=== PATIENT | female | born 1965 | race Caucasian/White ===

== ENCOUNTER 2022-12-09 20:31 | Emergency (ER) | payer BC ==
[2022-12-09] MEDS ORDERED: KETOROLAC 15 MG/ML 1 ML VIAL IM STA (20:57)
[2022-12-09] MEDS ORDERED: MORPHINE SULFATE 4 MG/ML SYRINGE IM STA (20:57)
--- NOTE | 2022-12-09 21:04 | ED ---
Upper Extremity HPI - General Chief Complaint: Extremity Injury, Upper Stated Complaint: Left shoulder injury Time Seen by Provider: 12/09/22 20:52 Source: patient, RN notes reviewed Mode of arrival: ambulatory Limitations: no limitations - History of Present Illness Initial Comments: This is a 57-year-old female who presents to the emergency department for left shoulder pain. States that she and her family are camping and her grandchildren were sleeping with her in a tent last night. She went to move one of them and developed severe sudden pain in the left shoulder. Reports a history of labral tears and states that this feels similar. She is taking ibuprofen and Tylenol with no relief in symptoms. She is having difficulty moving the arm due to the pain. States that her arm feels like it is starting to go numb. Denies any fevers, chills, sore throat, cough, dyspnea, chest pain, palpitations, abdominal pain, nausea, vomiting, diarrhea, back pain, or headaches. MD Complaint: Injury to:: left, shoulder Onset/Timin -: days(s) - Related Data Previous Rx's Medication Instructions Recorded Baclofen 10 mg PO TID PRN #20 tab 12/09/22 HYDROcodone/APAP 7.5-325MG [[place] 1 tab PO Q6HR PRN 3 Days #12 tab 12/09/22 7.5-325] Ketorolac [Toradol] 10 mg PO Q6HR PRN #12 tab 12/09/22 Allergies Allergy/AdvReac Type Severity Reaction Status Date / Time No Known Allergies Allergy Verified 12/09/22 20:43 Review of Systems ROS Statement: Those systems with pertinent positive or pertinent negative responses have been documented in the HPI. ROS Other: All systems not noted in ROS Statement are negative. Past Medical History Past Medical History: Hyperlipidemia History of Any Multi-Drug Resistant Organisms: None Reported Past Surgical History: Orthopedic Surgery Additional Past Surgical History / Comment(s): laparoscopy Past Psychological History: No Psychological Hx Reported Smoking Status: Never smoker Past Alcohol Use History: None Reported Past Drug Use History: None Reported General Exam Limitations: no limitations General appearance: alert, in no apparent distress Head exam: Present: atraumatic, normocephalic, normal inspection Respiratory exam: Present: normal lung sounds bilaterally. Absent: respiratory distress, wheezes, rales, rhonchi, stridor Cardiovascular Exam: Present: regular rate, normal rhythm, normal heart sounds. Absent: systolic murmur, diastolic murmur, rubs, gallop, clicks Extremities exam: Present: other (Tenderness to palpation over the posterior aspect of the left humeral head. No obvious deformities. Limited range of motion secondary to pain. 2+ radial pulses. Capillary refill <1 second.) Neurological exam: Present: alert, oriented X3, CN II-XII intact Psychiatric exam: Present: normal affect, normal mood Skin exam: Present: warm, dry, intact, normal color. Absent: rash Course Vital Signs 12/09/22 12/09/22 20:43 23:09 Temperature 98.1 F 98.0 F Pulse Rate 66 70 Respiratory 18 16 Rate Blood Pressure 120/81 130/86 O2 Sat by Pulse 98 97 Oximetry Medical Decision Making - Medical Decision Making This is a 57-year-old female who presents to the emergency department for left shoulder pain. Was pt. sent in by a medical professional or institution? @ -No Did you speak to anyone other than the patient for history? @ -No Did you review nursing and triage notes? @ -Yes, and I agree, it is accurate with regards to the patient's symptoms. Were old charts reviewed? @ -No Differential Diagnosis? @ -Differential Shoulder Injury: Fracture, dislocation, contusion, rotator cuff injury, AC joint separation, sprain, this is not meant to be an all-inclusive list. EKG interpreted by me (3pts min.)? @ -Not obtained X-rays interpreted by me (1pt min.)? @ -XR of the left shoulder obtained. My interpretation identifies no acute fractures or dislocations. CT interpreted by me (1pt min.)? @ -Not obtained U/S interpreted by me (1pt. min.)? @ -Not obtained What testing was considered but not performed? (CT, X-rays, U/S, labs)? Why? @ -None What meds were considered but not given? Why? @ -None Did you discuss the management of the patient with other professionals? @ -No Did you reconcile home meds? @ -No Was smoking cessation discussed for >3mins.? @ -No Was critical care preformed (if so, how long)? @ -No Were there social determinants of health that impacted care today? How? (Homelessness, low income, unemployed, alcoholism, drug addiction, transportation, low edu. Level, literacy, decrease access to med. care, assisted, rehab)? @ -No Was there de-escalation of care discussed even if they declined? (Discuss DNR or withdrawal of care, Hospice)? @ -No What co-morbidities impacted this encounter? (DM, HTN, Smoking, COPD, CAD, Cancer, CVA, Hep., AIDS, mental health diagnosis, sleep apnea, morbid obesity)? @ -None Was patient admitted / discharged? @ -Discharged. X-ray of the left shoulder obtained revealing no acute findings. She was initially given Toradol and morphine, however she had no relief in symptoms. She was subsequently given Dilaudid and Norflex, and afterwards started to have some relief in the pain. Pain was exacerbated whenever the arm was moved. Discussed that while her imaging does not reveal any irregularities, that does not rule out the possibility of problems with tendons, ligaments, or her rotator cuff. She was given an arm sling due to the pain being exacerbated by movement, however I advised that this can lead to a frozen shoulder if it is used for a prolonged period of time. Patient expresses understanding. Given the severity of her symptoms, I was willing to prescribe a 3 day course of [place], along with baclofen and Toradol. Patient is instructed to take the Toradol with Tylenol if needed and avoid any other [id number] anti-inflammatories such as ibuprofen with the Toradol. Also advised both the [place] and baclofen and may make her drowsy and she should avoid driving or operating machinery when taking them. Discussed having her become established with an orthopedic provider in her home town, in the event she needs an MRI of the shoulder for further evaluation. She will follow up with her primary care provider in the meantime. Undiagnosed new problem with uncertain prognosis? @ -None Drug Therapy requiring intensive monitoring for toxicity (Heparin, Nitro, Insulin, Cardizem)? @ -None Were any procedures done? @ -None Diagnosis/symptom? @ -Left shoulder pain/injury Acute, or Chronic, or Acute on Chronic? @ -Acute Uncomplicated (without systemic symptoms) or Complicated (systemic symptoms)? @ -Uncomplicated Side effects of treatment? @ -None Exacerbation, Progression, or Severe Exacerbation] @ -Not applicable Poses a threat to life or bodily function? @ -This is limiting her mobility of the left arm for the mean time. Return precautions reviewed in depth, the patient is instructed to return to the emergency department with any new, worsening, or concerning symptoms. Patient verbalized understanding. This case was discussed in detail with the attending ED physician, Dr. Guzman. Presentation, findings, and treatment plan discussed in detail as well. - Radiology Data Radiology results: report reviewed, image reviewed Disposition Clinical Impression: Injury of left shoulder Disposition: HOME SELF-CARE Instructions (If sedation given, give patient instructions): Shoulder Sprain (ED) Additional Instructions: Return to the emergency department with any new, worsening, or concerning symptoms. Alternate with the Toradol and Tylenol for pain relief. If you choose to take Toradol, do not take it with other anti-inflammatories such as ibuprofen, take one or the other. Take the [place] sparingly when your pain is the most severe. Be aware that both the baclofen and [place] may make you drowsy and you should avoid driving or operating machinery when taking them. Apply ice for 15-20 minutes every 2-3 hours. Consider becoming established with an orthopedic provider in the event you need an MRI of the shoulder to evaluate for other possible injuries. Follow up with your primary care provider in 1-2 days. Prescriptions: Baclofen 10 mg PO TID PRN #20 tab PRN Reason: Pain HYDROcodone/APAP 7.5-325MG [[place] 7.5-325] 1 tab PO Q6HR PRN 3 Days #12 tab PRN Reason: Pain Ketorolac [Toradol] 10 mg PO Q6HR PRN #12 tab PRN Reason: Pain Is patient prescribed a controlled substance at d/c from ED?: Yes When asked, does pt state using other controlled substances?: No If prescribed controlled substance>3 days was MAPS reviewed?: Prescribed <3 Days Referrals: Nonstaff,Physician [REFERRING] - 1-2 days
--- NOTE | 2022-12-09 21:44 | XR ---
EXAMINATION TYPE: XR shoulder complete LT DATE OF EXAM: 12/09/2022 9:24 PM INDICATION: Patient age:Female; 57 years old; Reason for study: Pain; COMPARISON: None TECHNIQUE: The left shoulder was examined in AP, internally rotated and scapular Y projections. FINDINGS: No evidence of acute osseous pathology, joint dislocation, or soft tissue swelling. The remaining por tions of the visualized chest are unremarkable. IMPRESSION: No acute osseous pathology.
[2022-12-09] MEDS ORDERED: ORPHENADRINE 30 MG/ML 2 ML VIAL IVP STA (22:06)
[2022-12-09] MEDS ORDERED: HYDROmorphone 0.5 MG/0.5 ML SYRINGE IVP STA (22:06)
[2022-12-09] MEDS ORDERED: DEXAMETHASONE SOD PHOSPHATE 10 MG/ML 1 ML VIAL IVP STA (23:00)
[2022-12-09] MEDS ORDERED: ACET/COD 300 MG/30 MG STARTER PACK 6 TAB BTL PO STA (23:00)
[2022-12-09] MEDS ORDERED: IBUPROFEN 600 MG STARTER PACK 4 TAB BTL PO STA (23:00)
[2022-12-09 23:10] VITALS: BP 130/86; PULSE 70; RESP 16; TEMP 98
== END 2022-12-09 23:24 | disposition home or self-care (01) ==
LOC: EC 20:31
DX: S40.912A Unspecified superficial injury of left shoulder, initial encounter (principal); X50.9XXA Other and unspecified overexertion or strenuous movements or postures, initial encounter
CPT/HCPCS: 73030; 99284; 96374; 96375 ×2; 96372; J2270; J1100; J2360; J1885; J1170